=== PATIENT | male | born 1955 | race Caucasian/White ===

== ENCOUNTER 2016-10-21 07:15 | Day surgery (SDC) | payer OTHER ==
[~2016-10-21] VITALS: Ht 180.3 cm; Wt 79.0 kg
[~2016-10-21 07:15] MED LIST: LORA1TAB PO; Sodium Chloride LOK Flush 10 mL Syringe IV PRN; TERB250T4 PO; fentaNYL-PF 50 mCg/mL 2 mL Inj IVPUSH PRN
[2016-10-21 07:42] VITALS: BP 160/100; PULSE 60; RESP 20; O2SAT 100
[2016-10-21] MEDS ORDERED: IBUP-1827 PO (07:44)
[2016-10-21] MEDS: 0.9% Sodium Chloride 1,000 ML IV PRN ×2 (08:11→08:35)
[2016-10-21 08:43] VITALS: BP 139/91; PULSE 54; RESP 15; O2SAT 97
[2016-10-21 08:53] VITALS: BP 132/77; PULSE 51; RESP 17; O2SAT 97
[2016-10-21 09:01] VITALS: BP 132/81; PULSE 52; RESP 17; O2SAT 97
--- NOTE | 2016-10-21 10:23 | ENDO ---
[address] [address] ENDOSCOPY PROCEDURE PATIENT: CARMELA ZAVALA : 1955 MR#: [id number] ADMIT: 10/21/2016 JOB ID: [id number] DATE: 10/21/2016 PRIMARY PROVIDER: Augustin Payne M.D. PROCEDURE: Colonoscopy. INDICATIONS: This is a 61-year-old male with a family history of colon cancer in his younger brother. EQUIPMENT: PCF H 190 L. SEDATION: 1. 5 mg Versed. 2. 100 mcg fentanyl. BOWEL PREPARATION: Poor. Copious amounts of solid and liquid stool debris throughout. PROCEDURAL INFORMATION: After the risks and benefits were explained, written and verbal informed consent was obtained. The patient was brought into the endoscopy suite and placed into the left lateral decubitus position. Sedation was achieved using the above-stated medications with the addition of oxygen via nasal cannula. A digital rectal examination was accomplished. No significant pathology appreciated. The scope was introduced into the rectum and advanced to the cecum as identified by the appendiceal orifice and ileocecal valve. The scope was slowly withdrawn to carefully examine the mucosa for any defects or lesions. Retroflexed views were accomplished in the rectum. The colon was decompressed. The scope removed the patient who tolerated the procedure well. FINDINGS: Within the limitations of bowel prep, I did not see any large polyps or mass lesions. In many areas medium and small polyps could have been easily overlooked. We spent an extremely lengthy period of time suctioning and irrigating. I removed at least almost a full suction canister of stool debris to make the examination even possible today. Retroflexed views from within the rectum were unremarkable. ENDOSCOPIC DIAGNOSIS: Poor bowel prep but otherwise no overt pathology. RECOMMENDATIONS: Repeat colonoscopy in 6-12 months with an extra day of liquids and laxative therapy in advance of the bowel prep.
== END 2016-10-21 23:59 | disposition home or self-care (01) ==
LOC: END 07:15
PROVIDERS: ATTEND Internal Medicine Gastroenterology
DX: Z12.11 Encounter for screening for malignant neoplasm of colon (principal); I10 Essential (primary) hypertension; Z80.0 Family history of malignant neoplasm of digestive organs
CPT/HCPCS: 99153; G0105; G0500; J7030